=== PATIENT | female | born 1985 | race Caucasian/White ===

== ENCOUNTER 2017-02-18 19:20 | Emergency (ER) | payer OTHER ==
[~2017-02-18] VITALS: Ht 157.5 cm; Wt 107.2 kg
[~2017-02-18 19:20] MED LIST: CLINDAMYCIN HC300 MG PO; COLACE100 MG PO; LAC PO; NORCO1 TA2 PO; ZOVIRAX51 TOP
[2017-02-18 19:51] VITALS: BP 115/78; Ht 157.5 cm; Wt 107.2 kg
== END 2017-02-18 21:07 | disposition left against medical advice (07) ==
LOC: ED 19:20
DX: Z53.21 Procedure and treatment not carried out due to patient leaving prior to being seen by health care provider (principal)

== ENCOUNTER 2017-05-16 12:08 | Emergency (ER) | payer OTHER ==
[~2017-05-16] VITALS: Ht 160 cm; Wt 108.9 kg
[2017-05-16 12:11] VITALS: BP 117/72; Ht 160 cm; Wt 108.9 kg
== END 2017-05-16 13:37 | disposition home or self-care (01) ==
LOC: ED 12:08
DX: R51 Headache (principal)
CPT/HCPCS: J1885